=== PATIENT | male | born 1995 | race Caucasian/White ===

== ENCOUNTER 2017-06-16 10:54 | Emergency (ER) | payer BC ==
[2017-06-16 12:09] VITALS: BP 146/92
--- NOTE | 2017-06-16 12:57 | UC ---
Throat Pain/Nasal Luis F HPI - HPI Summary HPI Summary: 22 [address] Sore throat x2 days and cough starting last night. Denies fever and chills. No meds taken. [ End ] - History of Current Complaint Chief Complaint: UCRespiratory Stated Complaint: COUGH,SORE THROAT Time Seen by Provider: 06/16/17 12:49 Hx Obtained From: Patient Onset/Duration: Sudden Onset Severity: Moderate - Allergies/Home Medications Allergies/Adverse Reactions: Allergies Allergy/AdvReac Type Severity Reaction Status Date / Time No Known Allergies Allergy Verified 06/16/17 12:05 PMH/Surg Hx/FS Hx/Imm Hx Previously Healthy: Yes - Surgical History Surgical History: Yes Surgery Procedure, Year, and Place: T&A. Appendix. RIGHT club foot surgeryx2. LEFT eye. - Family History Known Family History: Positive: None - Social History Occupation: Student Lives: Dormitory/Roommates Alcohol Use: Rare Substance Use Type: None Smoking Status (MU): Never Smoked Tobacco - Immunization History Most Recent Influenza Vaccination: NONE 2016 Review of Systems Constitutional: Fatigue ENT: Sore Throat, Ear Ache, Nasal Discharge, Sinus Congestion Respiratory: Cough All Other Systems Reviewed And Are Negative: Yes Physical Exam Triage Information Reviewed: Yes Appearance: Well-Appearing, No Pain Distress, Well-Nourished Vital Signs: Initial Vital Signs Temp 99 F 06/16/17 12:06 Pulse 90 06/16/17 12:06 Resp 18 06/16/17 12:06 BP 146/92 06/16/17 12:06 Pulse Ox 99 06/16/17 12:06 Vital Signs Reviewed: Yes Eye Exam: Normal ENT Exam: Normal Respiratory Exam: Normal Cardiovascular Exam: Normal Musculoskeletal Exam: Normal Neurological Exam: Normal Psychological Exam: Normal Skin Exam: Normal Throat Pain/Nasal Course/Dx - Course Course Of Treatment: Just fluids and tessalon at this time and if sx worsen in 3 -4 days then start antibiotics - Differential Dx/Diagnosis Differential Diagnosis/HQI/PQRI: Laryngitis, Pharyngitis, Sinusitis, URI Provider Diagnoses: URI Discharge - Discharge Plan Condition: Good Disposition: HOME Prescriptions: Amoxicillin/Clavulanate TAB* [Augmentin TAB 875*] 875 mg PO BID #20 tab Benzonatate [TESSALON 200 MG CAP] 200 mg PO TID #20 cap Patient Education Materials: Upper Respiratory Infection (ED) Forms: *Work Release Referrals: Non Staff,Doctor [Primary Care Provider] - If Needed Additional Instructions: As we discussed your infection appears viral and we will advise you to rest, drink water and give a cough suppressant. If your symptoms do not improve or worsen over the next 3-4 days then you may start the antibiotics. Of course if any concerns then you mar return for further evaluation
== END 2017-06-16 13:17 | disposition home or self-care (01) ==
LOC: UCCORT 10:54
DX: J06.9 Acute upper respiratory infection, unspecified (principal)
CPT/HCPCS: 99202; G0463

== ENCOUNTER 2017-11-23 15:19 | Emergency (ER) | payer BC ==
--- NOTE | 2017-11-23 17:34 | UC ---
FLU HPI - HPI Summary HPI Summary: 2 DAYS OF LEIVA, LOW GRADE FEVER ~100, MALAISE. DENIES COUGH, CONGESTION, FEVER, NAUSEA, ST. - History of Current Complaint Chief Complaint: UCRespiratory Stated Complaint: HEADACHE,FEVER Time Seen by Provider: 11/23/17 17:25 Hx Obtained From: Patient Onset/Duration: Gradual Onset, Lasting Days, Still Present Severity Currently: Moderate Severity Initially: Moderate Pain Intensity: 4 Pain Scale Used: 0-10 Numeric Associated Signs & Symptoms: Positive: Fever, Myalgia, Headache. Negative: Cough, Sore Throat - Allergy/Home Medications Allergies/Adverse Reactions: Allergies Allergy/AdvReac Type Severity Reaction Status Date / Time No Known Allergies Allergy Verified 11/23/17 15:37 Home Medications: Home Medications Ibuprofen TAB* [Motrin TAB* 400 MG] 400 mg PO Q6H PRN 11/23/17 [History Confirmed 11/23/17] PMH/Surg Hx/FS Hx/Imm Hx Previously Healthy: Yes - Surgical History Surgical History: Yes Surgery Procedure, Year, and Place: T&A. Appendix. RIGHT club foot surgeryx2. LEFT eye. - Family History Known Family History: Positive: None Negative: Hypertension - Social History Alcohol Use: Rare Substance Use Type: None Smoking Status (MU): Never Smoked Tobacco - Immunization History Most Recent Influenza Vaccination: NONE 2017 Review of Systems Constitutional: Fever ENT: Negative Respiratory: Negative Cardiovascular: Negative Gastrointestinal: Negative Musculoskeletal: Myalgia Neurological: Headache All Other Systems Reviewed And Are Negative: Yes Physical Exam Triage Information Reviewed: Yes Appearance: Well-Appearing, No Pain Distress, Well-Nourished Vital Signs: Initial Vital Signs Temp 98.4 F 11/23/17 15:32 Pulse 103 11/23/17 15:32 Resp 16 11/23/17 15:32 BP 144/77 11/23/17 15:32 Pulse Ox 99 11/23/17 15:32 Vital Signs Reviewed: Yes Eyes: Positive: Conjunctiva Clear ENT: Positive: Hearing grossly normal, Pharynx normal, Other - LEFT TM DULL, RED , BULGING. RIGHT TM NORMAL Neck: Positive: Supple, Nontender, No Lymphadenopathy Respiratory Exam: Normal Cardiovascular Exam: Normal Abdomen Description: Positive: Soft Musculoskeletal: Positive: No Edema Neurological: Positive: Alert Psychological: Positive: Age Appropriate Behavior Skin: Negative: rashes Flu Course/Dx - Differential Dx/Diagnosis Provider Diagnoses: LEFT AOM Discharge - Discharge Plan Condition: Stable Disposition: HOME Prescriptions: Amoxicillin PO (*) [Amoxicillin 500 MG CAP*] 1,000 mg PO Q12H #28 cap Patient Education Materials: Ear Infection (ED) Forms: *School Release Referrals: No Primary Care Phys,NOPCP [Primary Care Provider] - Additional Instructions: FOLLOW-UP WITH [facility] OR HERE IF YOU ARE NOT IMPROVING EXPECTED WITH TREATMENT. TAKE ANTIBIOTIC FOR FULL COURSE. OTC IBUPROFEN/TYLENOL NEEDED FOR FEVER/DISCOMFORT.
[2017-11-23 17:42] VITALS: BP 152/82
== END 2017-11-23 17:42 | disposition home or self-care (01) ==
LOC: UCCORT 15:19
DX: H66.92 Otitis media, unspecified, left ear (principal)
CPT/HCPCS: 99212; G0463